=== PATIENT | female | born 1935 | race African-American/Black ===

== ENCOUNTER 2018-03-26 09:47 | Emergency (ER) | payer MEDICARE, OTHER ==
[~2018-03-26] VITALS: Ht 167.6 cm; Wt 73.5 kg
[~2018-03-26 09:47] MED LIST: GYNE-LOTRIMIN45 GM VG; IBUPROFEN600 MG ORAL; LISINOPRIL20 MG ORAL; NITROFURANTOIN100 M2 ORAL; TRAMADOL HCL50 MG ORAL
[2018-03-26 09:55] VITALS: BP 130/76
--- NOTE | 2018-03-26 10:04 | Emergency Room Report ---
History of Present Illness General Chief Complaint: Back Pain-No Injury Source: Patient, EMS Present Illness HPI Patient is a 82-year-old female who presented after increased low back pain. Patient reports having prior history of prior episodes of back pain and had prior history of lumbar spine stenosis. The patient had been using a topical gel which usually helps the pain however this had not improved the pain today. The patient worsening pain with upright position. She denies any numbness or weakness to her extremities. She reports having been able to ambulate with some discomfort. She reports having preceding been getting epidural injections. Allergies: Coded Allergies: No Known Allergies (Unverified , 03/24/14) Patient History Past Medical History: see triage record Now: No Reviewed Nursing Documentation: PMH: Agreed; PSxH: Agreed Nursing Documentation-PMH Past Medical History: No History, Except For Hx Hypertension: Yes Hx Diabetes: Yes Review of Systems All Other Systems: negative except mentioned in HPI Physical Exam Vital Signs Date Time Temp Pulse Resp B/P (MAP) Pulse Ox O2 Delivery O2 Flow Rate FiO2 03/26/18 09:47 98.9 88 16 130/76 94 Room Air 99.0 Sp02 EP Interpretation: reviewed, normal General Appearance: normal inspection, well appearing, no apparent distress, alert, GCS 15 Head: atraumatic ENT: normal ENT inspection, hearing grossly normal, normal voice Neck: normal inspection, full range of motion, supple, no bony tend Respiratory: normal inspection, lungs clear, normal breath sounds, no respiratory distress, no retraction, no wheezing Cardiovascular #1: regular rate, rhythm, no edema Gastrointestinal: normal inspection, normal bowel sounds, non tender, soft, no guarding, no hernia Genitourinary: no CVA tenderness Musculoskeletal: decreased range of motion Neurologic: normal inspection, alert, oriented x3, responsive, senior oracle adf developer III-XII nml as tested, speech normal Psychiatric: normal inspection, judgement/insight normal, mood/affect normal Skin: normal inspection, normal color, no rash Medical Decision Making Diagnostic Impression: Primary Impression: Acute exacerbation of chronic low back pain ER Course Patient presented for back pain. Differential diagnosis included but was not limited to herniated disc, cauda equina syndrome, abdominal aortic aneurysm, perforated ulcer, spinal epidural abscess, spinal stenosis, lumbar fracture, metastatic lesion, pyelonephritis. X-ray imaging was ordered to rule out compression fracture due to the patient's advanced age. The x-ray imaging of the lumbar spine 3 views interpreted by radiology showed no evidence of acute malalignment or fracture. Patient was noted to have prior CT imaging which showed evidence of lumbar disc disease. The patient was advised follow-up with her primary care physician for further evaluation and treatment. Patient is advised to return if any worsening condition or if any changes in status that are concerning. This report is dictated with [employer] print developer automatic software which may occasionally lead to discrepancies related to use of this software. Labs Test 03/26/18 10:35 Urine Color Pale yellow Urine Appearance Clear Urine pH 5 (4.5-8.0) Urine Specific [place] 1.015 (1.005-1.035) Urine Protein Negative (NEGATIVE) Urine Glucose (UA) Negative (NEGATIVE) Urine Ketones Negative (NEGATIVE) Urine Occult Blood Negative (NEGATIVE) Urine Nitrite Negative (NEGATIVE) Urine Bilirubin Negative (NEGATIVE) Urine Urobilinogen Normal MG/DL (0.0-1.0) Urine Leukocyte Esterase Negative (NEGATIVE) Last Vital Signs Date Time Temp Pulse Resp B/P (MAP) Pulse Ox O2 Delivery O2 Flow Rate FiO2 03/26/18 09:55 99.0 79 16 130/76 94 Room Air 99.0 Status: improved Disposition: HOME, SELF-CARE Condition: Stable Scripts Meloxicam* (MELOXICAM*) 7.5 Mg Tablet 7.5 MG PO DAILY, #30 TAB Prov: Adam Betts MD 03/26/18 Lidocaine (Lidocaine) 1 Each Adh..patch 5 % TP DAILY, #30 PATCH Prov: Adam Betts MD 03/26/18 Referrals: NOT CHOSEN IPA/,REFERRING (PCP) Adam Betts MD Mar 26, 2018 10:04
[2018-03-26 11:00] LABS: APPEARANCE,URINE CLEAR; BILIRUBIN, URINE NEGATIVE (NEGATIVE); COLOR,URINE PALE YELLOW; GLUCOSE, URINE (UA) NEGATIVE (NEGATIVE); KETONES,URINE NEGATIVE (NEGATIVE); LEUKOCYTE ESTERASE ,URINE NEGATIVE (NEGATIVE); NITRITE,URINE NEGATIVE (NEGATIVE); PH,URINE 5 (4.5-8.0); PROTEIN,URINE NEGATIVE (NEGATIVE); UROBILINOGEN,URINE NORMAL MG/DL (0.0-1.0)
--- NOTE | 2018-03-26 11:02 | Diagnostic Imaging Report ---
EXAM: XR Lumbar Spine, 2 or 3 Views CLINICAL HISTORY: PAIN TECHNIQUE: Frontal and lateral views of the lumbar spine. COMPARISON: No relevant prior studies available. FINDINGS: Vertebrae: Grade 1 anterolisthesis of L4 on L5 likely degenerative. No acute fracture. Disc spaces: Mild degenerative disc disease and facet arthropathy L4- S1. Soft tissues: Unremarkable. Other findings: IMPRESSION: 1. No acute fracture. 2. Grade 1 anterolisthesis of L4 on L5 likely degenerative. 3. Mild degenerative disc disease and facet arthropathy L4-S1.
[2018-03-26] MEDS ORDERED: LIDOCAINE700 M1 TP (11:11)
[2018-03-26] MEDS ORDERED: MELOXICAM7.5 MG PO (11:17)
[2018-03-26 11:28] VITALS: BP 124/84
== END 2018-03-26 11:29 | disposition home or self-care (01) ==
LOC: EDBD 09:47 → EMR 09:54
DX: M54.5 Low back pain (principal); G89.29 Other chronic pain; I10 Essential (primary) hypertension; E11.9 Type 2 diabetes mellitus without complications
CPT/HCPCS: 72020; 81003; 99283